=== PATIENT | female | born 1995 | race Caucasian/White ===

== ENCOUNTER 2022-03-14 16:35 | Inpatient (IN) | payer OTHER ==
[2022-03-14] MEDS ORDERED: PROMETHAZINE HCL 25 MG/1 ML VIAL IVPUSH ONE (17:24)
[2022-03-14] MEDS ORDERED: BUTORPHANOL TARTRATE 2 MG/ML VIAL IVPB ONE (17:24)
[2022-03-14] MEDS ORDERED: SODIUM PHOSPHATE/NA BIPHOS 133 ML ENEMA PR ONE (17:27)
[2022-03-14] MEDS ORDERED: DINOPROSTONE 10 MG VAGINAL SUPPOSITORY VG ONE (17:28)
[2022-03-14 17:38] VITALS: BMI 30.2
[2022-03-14] MEDS: DEXTROSE 5%-LACTATED RINGERS 1,000 ML IV SCH (21:05)
[2022-03-15] MEDS ORDERED: BUTORPHANOL TARTRATE 2 MG/ML VIAL ONE (02:24)
[2022-03-15] MEDS ORDERED: PROMETHAZINE HCL 25 MG/1 ML VIAL ONE (02:24)
[2022-03-15] MEDS: DEXTROSE 5%-LACTATED RINGERS 1,000 ML IV SCH ×3 (03:30→18:15)
[2022-03-15] MEDS ORDERED: DINOPROSTONE 10 MG VAGINAL SUPPOSITORY VG ONE (13:15)
[2022-03-15] MEDS ORDERED: BUTORPHANOL TARTRATE 2 MG/ML VIAL IVPB ONE (22:00)
[2022-03-15] MEDS ORDERED: PROMETHAZINE HCL 25 MG/1 ML VIAL IVPB ONE (22:00)
[2022-03-16] MEDS ORDERED: PROMETHAZINE HCL 25 MG/1 ML VIAL ONE (00:24)
[2022-03-16] MEDS ORDERED: BUTORPHANOL TARTRATE 2 MG/ML VIAL ONE (00:24)
[2022-03-16] MEDS: DEXTROSE 5%-LACTATED RINGERS 1,000 ML IV SCH (06:15)
[2022-03-16] MEDS ORDERED: FENTANYL/BUPIVACAINE/NS/PF - PCEA - 50 ML DISP.SYRIN EP ONE ×2 (08:51→13:25)
[2022-03-16] MEDS ORDERED: ELECTROLYTE-148 SOLN 1,000 ML IV SCH (09:00)
[2022-03-16] MEDS ORDERED: BUPIVACAINE HCL/PF 0.25% (2.5MG/ML) 10 ML VIAL ONE ×2 (09:01→14:37)
[2022-03-16] MEDS: FENTANYL/BUPIVACAINE/NS/PF - PCEA - 50 ML DISP.SYRIN EP SCH ×2 (09:25→13:25)
[2022-03-16] MEDS ORDERED: NALOXONE HCL 0.4 MG/ML VIAL IVPUSH PRN (09:55)
[2022-03-16] MEDS ORDERED: OXYTOCIN 30 UNITS in 0.9% NS 30 UNIT/500 ML INFUS.BAG IVPB SCH (10:00)
[2022-03-16] MEDS ORDERED: LIDOCAINE HCL 1% PRESERVATIVE FREE - 30ML VIAL ONE (16:12)
[2022-03-16] MEDS ORDERED: OXYTOCIN 20 UNITS in 0.9% NS 20 UNIT/1,000 ML INFUS.BAG IV ONE ×2 (16:12→18:03)
[2022-03-16] MEDS ORDERED: CITRIC ACID/SODIUM CITRATE 30 ML UNIT-DOSE CUP PO ONE (17:49)
[2022-03-16] MEDS ORDERED: LIDOCAINE HCL/EPINEPHRINE/PF 20 ML VIAL ONE (17:52)
[2022-03-16] MEDS ORDERED: SODIUM BICARBONATE 8.4% 50 MEQ/50 ML VIAL ONE (17:52)
[2022-03-16] MEDS ORDERED: ACETAMINOPHEN INJECTION 100 ML IVPB ONE (18:03)
[2022-03-16] MEDS ORDERED: ceFAZolin SODIUM 1 GM VIAL ONE (18:10)
[2022-03-16] MEDS ORDERED: ONDANSETRON 4 MG/2 ML VIAL ONE (18:53)
[2022-03-16] MEDS: OXYTOCIN 20 UNITS in 0.9% NS 20 UNIT/1,000 ML INFUS.BAG IV SCH (19:45)
[2022-03-16] MEDS ORDERED: METHYLERGONOVINE MALEATE 0.2 MG/1 ML AMP IM PRN (19:48)
[2022-03-16] MEDS ORDERED: ACETAMINOPHEN 325 MG TABLET (FP) PO PRN (19:48)
[2022-03-16 20:58] LABS: CORD BASE EXCESS -6.4 mmol/L (0-2); CORD PCO2 43.1 mmHg (30-78); CORD pH 7.285 (7.14-7.44)
[2022-03-16 21:01] LABS: CORD HCO3 25.3 mmHg (20-29); CORD PCO2 59.4 mmHg (30-78); CORD pH 7.247 (7.14-7.44)
[2022-03-16] MEDS ORDERED: ONDANSETRON 4 MG/2 ML VIAL IVPUSH PRN (22:12)
[2022-03-17] MEDS ORDERED: CEFAZOLIN 1 GM/D5W 1 GM/50 ML BAG IVPB SCH (02:00)
[2022-03-17] MEDS ORDERED: CEFAZOLIN 1 GM in DEXTROSE 5%-WATER - 1 GM/50 ML IVPB IVPB SCH (02:43)
[2022-03-17] MEDS ORDERED: ceFAZolin SODIUM 1 GM VIAL ONE ×3 (02:46→17:54)
[2022-03-17] MEDS ORDERED: DEXTROSE 5%-WATER - 50 ML IVPB ONE ×3 (02:46→17:53)
[2022-03-17] MEDS: CEFAZOLIN 1 GM in DEXTROSE 5%-WATER - 1 GM/50 ML IVPB IVPB SCH ×3 (02:47→18:02)
[2022-03-17] MEDS: OXYTOCIN 20 UNITS in 0.9% NS 20 UNIT/1,000 ML INFUS.BAG IV SCH (04:38)
[2022-03-17] MEDS ORDERED: oxyCODONE HCL 5 MG TABLET PO PRN ×2 (07:48)
[2022-03-17 08:33] LABS: HEMATOCRIT 36.6 % (32.4-45.2); HEMOGLOBIN 12.6 GM/dL (10.7-15.3); MCH 32.6 pg (25.7-33.7); MCHC 34.5 g/dl (32.0-36.0); MEAN CELL VOLUME 94.4 fl (80-96); MEAN PLT VOLUME 9.2 fl (7.5-11.1); PLATELET COUNT 132 10^3/uL (134-434); RBC 3.88 M/mm3 (3.60-5.2); RDW 13.2 % (11.6-15.6); WHITE BLOOD COUNT 14.9 K/mm3 (4.0-10.0)
[2022-03-17] MEDS: ENOXAPARIN NA (PORCINE) 40 MG/0.4 ML DISP.SYRIN SQ SCH (10:01)
[2022-03-17] MEDS: PRENATAL VITAMINS W/ FOLIC ACID TABLET (FP) PO SCH (10:01)
[2022-03-17 11:30] LABS: ANISOCYTOSIS 1+; MACROCYTOSIS 0
[2022-03-17] MEDS: SIMETHICONE 80 MG TAB.CHEW (FP) PO PRN ×2 (11:32→23:13)
[2022-03-17] MEDS: IBUPROFEN 800 MG/8 ML IJ IVPB PRN ×2 (11:32→18:28)
[2022-03-17] MEDS ORDERED: BISACODYL 10 MG SUPP.RECT RC PRN (19:48)
[2022-03-17] MEDS: IBUPROFEN 600 MG TABLET (FP) PO PRN (23:13)
[2022-03-17] MEDS: FERROUS SO4 325 MG TABLET (FP) PO SCH (23:13)
[2022-03-17] MEDS: SENNOSIDES/DOCUSATE COMBO (SENNA PLUS) TABLET (UD) PO PRN (23:14)
[2022-03-18] MEDS: PRENATAL VITAMINS W/ FOLIC ACID TABLET (FP) PO SCH (10:10)
[2022-03-18] MEDS: ENOXAPARIN NA (PORCINE) 40 MG/0.4 ML DISP.SYRIN SQ SCH (10:10)
[2022-03-18] MEDS: FERROUS SO4 325 MG TABLET (FP) PO SCH ×2 (10:10→21:57)
[2022-03-18] MEDS: AMOX TR/POT CLAV 875MG/125MG TABLETS (FP) PO SCH (18:22)
[2022-03-18] MEDS: SIMETHICONE 80 MG TAB.CHEW (FP) PO PRN (18:27)
[2022-03-18] MEDS: IBUPROFEN 600 MG TABLET (FP) PO PRN (21:57)
[2022-03-18] MEDS: SENNOSIDES/DOCUSATE COMBO (SENNA PLUS) TABLET (UD) PO PRN (21:57)
[2022-03-19] MEDS: AMOX TR/POT CLAV 875MG/125MG TABLETS (FP) PO SCH (08:58)
[2022-03-19] MEDS: ENOXAPARIN NA (PORCINE) 40 MG/0.4 ML DISP.SYRIN SQ SCH (09:40)
[2022-03-19] MEDS: FERROUS SO4 325 MG TABLET (FP) PO SCH (09:40)
[2022-03-19] MEDS: PRENATAL VITAMINS W/ FOLIC ACID TABLET (FP) PO SCH (09:40)
[2022-03-19 10:07] VITALS: BP 113/72; PULSE 88; TEMP 97.7
[2022-03-19 10:08] LABS: BASO % 0.2 % (0-2.0); EOS % 1.7 % (0-4.5); HEMATOCRIT 39.3 % (32.4-45.2); HEMOGLOBIN 13.5 GM/dL (10.7-15.3); LYMPH % 13.6 % (8-40); MCH 32.6 pg (25.7-33.7); MCHC 34.3 g/dl (32.0-36.0); MEAN CELL VOLUME 94.8 fl (80-96); MEAN PLT VOLUME 9.1 fl (7.5-11.1); MONO % 5.9 % (3.8-10.2); NEUT % 78.6 % (42.8-82.8); PLATELET COUNT 200 10^3/uL (134-434); RBC 4.14 M/mm3 (3.60-5.2); RDW 13.5 % (11.6-15.6); WHITE BLOOD COUNT 8.5 K/mm3 (4.0-10.0)
== END 2022-03-19 13:36 | disposition home or self-care (01) | DRG 540 ==
LOC: JLDR 16:35 → J3W 03-16 21:36
PROVIDERS: ADMIT Obstetrics & Gynecology; ATTEND Obstetrics & Gynecology
PROC: 3E0P7VZ Introduction of Hormone into Female Reproductive, Via Natural or Artificial Opening (ICD-10-PCS; 2022-03-14)
PROC: 10D00Z1 Extraction of Products of Conception, Low, Open Approach (ICD-10-PCS; principal; 2022-03-16)
DX: O48.0 Post-term pregnancy (principal); O63.9 Long labor, unspecified; O76 Abnormality in fetal heart rate and rhythm complicating labor and delivery; O77.9 Labor and delivery complicated by fetal stress, unspecified; O62.2 Other uterine inertia; O36.63X0 Maternal care for excessive fetal growth, third trimester, not applicable or unspecified; Z3A.41 41 weeks gestation of pregnancy; Z37.0 Single live birth
CPT/HCPCS: 36415; 36600; 82803; 85025; 86850; 86900; 86901; 87086; 88307-TC

== ENCOUNTER 2024-05-18 23:30 | Emergency (ER) | payer OTHER ==
[2024-05-18 23:38] VITALS: TEMP 98.3; BMI 30.4
[2024-05-19] MEDS: MAG HYDROX/AL HYDROX/SIMETH 30 ML UNIT-DOSE CUP PO ONE (00:30)
[2024-05-19] MEDS ORDERED: MAG HYDROX/AL HYDROX/SIMETH 30 ML UNIT-DOSE CUP ONE (00:32)
[2024-05-19] MEDS ORDERED: FAMOTIDINE 20 MG/50 ML IVPB 20 MG/50 ML MG IVPB ONE (00:32)
[2024-05-19] MEDS ORDERED: ACETAMINOPHEN INJECTION 100 ML ONE (00:32)
[2024-05-19] MEDS: FAMOTIDINE 20 MG/50 ML IVPB 20 MG/50 ML MG IVPB ONE (00:35)
[2024-05-19] MEDS: LACTATED RINGERS SOLUTION 1000 ML INFUS.BAG IV ONE (00:43)
[2024-05-19] MEDS: ACETAMINOPHEN 1000 MG/100 ML BAG IVPB ONE (00:43)
[2024-05-19 00:49] LABS: BASO % 0.1 % (0-2.0); EOS % 0.4 % (0-4.5); HEMATOCRIT 40.4 % (32.4-45.2); HEMOGLOBIN 13.8 GM/dL (10.7-15.3); LYMPH % 16.4 % (8-40); MCHC 34.1 g/dl (32.0-36.0); MEAN CELL VOLUME 87.9 fl (80-96); MEAN PLT VOLUME 8.4 fl (7.5-11.1); MONO % 8.4 % (3.8-10.2); NEUT % 74.7 % (42.8-82.8); PLATELET COUNT 229 10^3/uL (134-434); RBC 4.59 M/mm3 (3.60-5.2); RDW 13.6 % (11.6-15.6); WHITE BLOOD COUNT 9.8 K/mm3 (4.0-10.0)
[2024-05-19 01:15] LABS: POTASSIUM 3.9 mmol/L (3.5-5.1)
[2024-05-19 01:18] LABS: ALBUMIN 3.4 g/dl (3.4-5.0); BLOOD UREA NITROGEN 9.2 mg/dL (7-18)
[2024-05-19 01:21] LABS: CREATININE 0.7 mg/dL (0.55-1.3)
[2024-05-19 01:22] LABS: BILIRUBIN,TOTAL 0.2 mg/dL (0.2-1); TOT PROT 6.6 g/dl (6.4-8.2)
[2024-05-19 01:51] VITALS: BP 120/79; PULSE 72; RESP 16
[2024-05-19 02:08] LABS: HIV INTERPRETATION NEGATIVE (NEGATIVE)
== END 2024-05-19 01:51 | disposition home or self-care (01) ==
LOC: JER 23:30
PROC: 3E033GC Introduction of Other Therapeutic Substance into Peripheral Vein, Percutaneous Approach (ICD-10-PCS; principal; 2024-05-19)
PROC: 3E033NZ Introduction of Analgesics, Hypnotics, Sedatives into Peripheral Vein, Percutaneous Approach (ICD-10-PCS; 2024-05-19)
DX: R10.13 Epigastric pain (principal); R19.7 Diarrhea, unspecified
CPT/HCPCS: 36415; 80053; 83690; 84703; 85025; 86803; 87389; 99284-25; J0131